=== PATIENT | male | born 1950 | race Caucasian/White ===

== ENCOUNTER 2017-04-18 10:40 | Emergency (ER) | payer OTHER, MEDICARE ==
[~2017-04-18] VITALS: Ht 172.7 cm; Wt 83.0 kg
[~2017-04-18 10:40] MED LIST: ASPI81 PO; ATOR10 PO; LISI10TA PO; NEXI40CA PO
[2017-04-18 10:49] VITALS: BP 142/84; PULSE 97; RESP 16; TEMP 100; O2SAT 97
[2017-04-18] MEDS ORDERED: SODIUM CHLOR 0.9% 1000 ML INJ 1,000 ML IV SCH (11:08)
[2017-04-18] MEDS ORDERED: SODIUM CHLORIDE 0.9% FLUSH 10 ML FLUSH IV FLUSH PRN (11:15)
--- NOTE | 2017-04-18 11:18 | PD ---
HPI Chief Complaint: Abdominal Pain Time Seen by Provider: 10:57 Travel History International Travel<30 days: No Contact w/Intl Traveler<30days: No Traveled to known affect area: No History of Present Illness HPI 66-year-old man presents to the emergency department complaining of abdominal pain and a lecture shocklike pain in his arms and legs. Patient states that he felt well until April 01 when he took his pravastatin which was newly prescribed to him while traveling in [place]. Then states that he felt like the entire hotel bed that he was on begin the vibrated shake. He does not take in the pravastatin since then. He states since yesterday and into this morning he began having bandlike abdominal discomfort across the top of his abdomen. He came into the emergency department this morning because he describes electric shocklike discomfort in his arms and legs. No nausea or vomiting. His never had any the symptoms before. Denies any history of anxiety. He looks otherwise well. He did not eat breakfast this morning because he was in a try to go see his doctor about them able to get blood work. His doctor cannot see until Friday so he came to the emergency department today. History Past Medical History Narrative Medical Hyperlipidemia Hypertension Enlarged left ventricle Influenza Vaccination: Yes Social History Alcohol Use: No Tobacco Use: No Allergies-Medications (Allergen,Severity, Reaction): Coded Allergies: No Known Allergies (Verified , 04/18/17) Reported Meds & Prescriptions Reported Meds & Active Scripts Active Reported Nexium (Esomeprazole) 40 Mg Cap 40 Mg PO DAILY Aspirin 81 Mg Tab 81 Mg PO DAILY Lipitor (Atorvastatin Calcium) 10 Mg Tab 0 PO DAILY UNKNOWN DOSE Lisinopril/Hctz 20/12.5 (HCTZ/Lisinopril) Tab 1 Tab PO BID Review of Systems Except as stated in HPI: all other systems reviewed are Neg Physical Exam Narrative GENERAL: Well-appearing 66-year-old man, no acute distress. SKIN: Focused skin assessment warm/dry. NECK: Trachea midline. No JVD. CARDIOVASCULAR: Regular rate and rhythm. No murmur appreciated. RESPIRATORY: No accessory muscle use. Clear to auscultation. Breath sounds equal bilaterally. GASTROINTESTINAL: Abdomen is flat and soft. He has moderate right upper quadrant tenderness with some minimal voluntary guarding. No peritonitis. MUSCULOSKELETAL: No obvious deformities. No edema. NEUROLOGICAL: Awake and alert. No obvious cranial nerve deficits. Motor grossly within normal limits. Normal speech. PSYCHIATRIC: Appropriate mood and affect; insight and judgment normal. Data Data Last Documented VS Vital Signs Date Time Temp Pulse Resp B/P Pulse Ox O2 Delivery O2 Flow Rate FiO2 04/18/17 11:24 96 Room Air 04/18/17 10:49 100.0 97 16 142/84 Orders Complete Blood Count With Diff (04/18/17 11:08) Comprehensive Metabolic Panel (04/18/17 11:08) Lipase (04/18/17 11:08) Urinalysis - C+S If Indicated (04/18/17 11:08) Iv Access Insert/Monitor (04/18/17 11:08) Ecg Monitoring (04/18/17 11:08) Oximetry (04/18/17 11:08) Sodium Chlor 0.9% 1000 Ml Inj (Ns 1000 M (04/18/17 11:08) Sodium Chloride 0.9% Flush (Ns Flush) (04/18/17 11:15) Ed Poc Ultrasound (04/18/17 11:08) Ct Abd/Pel W Iv Contrast(Rout) (04/18/17 ) Iohexol 350 Inj (Omnipaque 350 Inj) (04/18/17 12:28) Labs Laboratory Tests Test 04/18/17 04/18/17 11:19 11:20 Urine Collection Type CLEAN CATCH Urine Color YELLOW Urine Turbidity CLEAR Urine pH 8.0 Urine Specific [place] 1.016 Urine Protein TRACE mg/dL Urine Glucose (UA) NEG mg/dL Urine Ketones NEG mg/dL Urine Occult Blood NEG Urine Nitrite NEG Urine Bilirubin NEG Urine Leukocyte Esterase NEG Urine RBC 0-3 /hpf Urine Squamous Epithelial 0-5 /hpf Cells Urine Amorphous Sediment FEW Microscopic Urinalysis Comment CULT NOT INDICATED Urine Collection Time 11:19 White Blood Count 9.5 TH/MM3 Red Blood Count 4.82 MIL/MM3 Hemoglobin 14.5 GM/DL Hematocrit 42.8 % Mean Corpuscular Volume 88.8 FL Mean Corpuscular Hemoglobin 30.1 PG Mean Corpuscular Hemoglobin 33.9 % Concent Red Cell Distribution Width 12.1 % Platelet Count 164 TH/MM3 Mean Platelet Volume 9.8 FL Neutrophils (%) (Auto) 86.8 % Lymphocytes (%) (Auto) 2.4 % Monocytes (%) (Auto) 9.9 % Eosinophils (%) (Auto) 0.8 % Basophils (%) (Auto) 0.1 % Neutrophils # (Auto) 8.3 TH/MM3 Lymphocytes # (Auto) 0.2 TH/MM3 Monocytes # (Auto) 0.9 TH/MM3 Eosinophils # (Auto) 0.1 TH/MM3 Basophils # (Auto) 0.0 TH/MM3 CBC Comment DIFF FINAL Differential Comment Sodium Level 141 MEQ/L Potassium Level 3.6 MEQ/L Chloride Level 103 MEQ/L Carbon Dioxide Level 27.9 MEQ/L Anion Gap 10 MEQ/L Blood Urea Nitrogen 9 MG/DL Creatinine 1.10 MG/DL Estimat Glomerular Filtration 67 ML/MIN Rate Random Glucose 103 MG/DL Calcium Level 8.7 MG/DL Total Bilirubin 0.5 MG/DL Aspartate Amino Transf 18 U/L (AST/SGOT) Alanine Aminotransferase 30 U/L (ALT/SGPT) Alkaline Phosphatase 92 U/L Total Protein 7.3 GM/DL Albumin 4.0 GM/DL Lipase 118 U/L MDM Medical Decision Making Medical Screen Exam Complete: Yes Emergency Medical Condition: Yes Interpretation(s) LABS: CBC unremarkable. CMP unremarkable. Lipase is normal. UA is unremarkable. CT abdomen and pelvis: Negative. Prominent gallbladder. Benign hepatic cyst. Differential Diagnosis Cholecystitis, symptomatic cholelithiasis, gastritis, anxiety, electrolyte abnormality, other Narrative Course Medical decision making 66-year-old man with unusual constellation of symptoms, bizarrely described, the most substantial which is some upper abdominal pain of right upper quadrant tenderness. The descriptions of the hotel bed shaking symptoms, and electric shocklike sensations her arms and legs he must concerning. We'll check labs, check for electrolyte abnormalities, we'll check for evidence of cholelithiasis or cholecystitis. Likely outpatient follow-up with his primary doctor on Friday. Procedures Procedure Narrative Point of care ultrasound: Focus transabdominal ultrasounds performed by me at the bedside for the purpose of evaluating for evidence of cholecystitis. Gallbladder is distended. No gallstones were seen. No gallbladder wall thickening pericholecystic was identified. Common bile duct was 3.2 mm. There may been a little bit of sludging. Diagnosis Primary Impression: Abdominal pain Additional Instructions: Drink plenty of fluids to stay well-hydrated. Follow-up with her primary doctor in the next 2-4 days. Return to the emergency department for any new or worsening symptoms. Med/Other Pt SpecificInfo: No Change to Meds Disposition: 01 DISCHARGE HOME Condition: Stable Yuri Ascencio MD Apr 18, 2017 11:18
[2017-04-18 11:24] VITALS: O2SAT 96
[2017-04-18 11:27] LABS: BLOOD, URINE NEG (NEG); GLUCOSE,URINE NEG (NEG); KETONE, URINE NEG (NEG); NITRITE,URINE NEG (NEG)
[2017-04-18 11:33] LABS: METHOD OF COLLECTION CLEAN CATCH
[2017-04-18 11:34] LABS: AUTOMATED NEUTROPHIL # 8.3 TH/MM3 (1.8-7.7); BASOPHIL % 0.1 % (0.0-2.0); EOSINOPHIL # 0.1 TH/MM3 (0-0.4); EOSINOPHIL % 0.8 % (0.0-4.0); HEMATOCRIT 42.8 % (39.0-51.0); HEMO FLAGS DIFF FINAL; LYMPH % 2.4 % (9.0-44.0); LYMPHOCYTE # 0.2 TH/MM3 (1.0-4.8); MEAN CELL VOLUME 88.8 FL (80.0-100.0); MEAN CORPUSCULAR HEMOGLOBIN 30.1 PG (27.0-34.0); MEAN CORPUSCULAR HGB CONC 33.9 % (32.0-36.0); MONO % 9.9 % (0.0-8.0); NEUT % 86.8 % (16.0-70.0); PLATELET COUNT 164 TH/MM3 (150-450); RED BLOOD COUNT 4.82 MIL/MM3 (4.50-5.90); RED CELL DISTRIBUTION WIDTH 12.1 % (11.6-17.2); WHITE BLOOD COUNT 9.5 TH/MM3 (4.0-11.0)
[2017-04-18 11:34] LABS: COMMENT (UR) CULT NOT INDICATED; CULTURE IF INDICATED CULT NOT INDICATED; RBC, URINE 0-3 /hpf (0-3); SQUAMOUS EPITHELIAL CELL URINE 0-5 /hpf (0-5); URINE COLOR YELLOW (YELLW/STRAW)
[2017-04-18 11:41] LABS: CHLORIDE 103 MEQ/L (98-107); POTASSIUM 3.6 MEQ/L (3.5-5.1); SODIUM (NA) 141 MEQ/L (136-145)
[2017-04-18 11:45] LABS: ANION GAP 10 MEQ/L (5-15); BICARBONATE 27.9 MEQ/L (21.0-32.0); BLOOD UREA NITROGEN 9 MG/DL (7-18)
[2017-04-18 11:48] LABS: ALT (GPT) 30 U/L (12-78); AST (GOT) 18 U/L (15-37); GLOMERULAR FILTRATION RATE 67 ML/MIN (>89)
[2017-04-18 11:49] LABS: TOTAL BILIRUBIN ADULT 0.5 MG/DL (0.2-1.0)
[2017-04-18 11:51] LABS: ALKALINE PHOSPHATASE 92 U/L (45-117)
[2017-04-18] MEDS ORDERED: IOHEXOL 350 MG/ML 10 ML VIAL (for RAD DIAG) IV ONE (12:28)
--- NOTE | 2017-04-18 14:09 | RADHPO ---
EXAM DATE/TIME: 04/18/2017 12:14 [facility] COMPARISON: CT ABDOMEN & PELVIS W CONTRAST, October 06, 2011, 18:54. INDICATIONS : Right upper quadrant pain. IV CONTRAST: 85 cc Omnipaque 350 (iohexol) IV ORAL CONTRAST: No oral contrast ingested. RADIATION DOSE: 11.43 CTDIvol (mGy) MEDICAL HISTORY : Chronic obstructive pulmonary disease. Gastroesophageal reflux disease. Hypertension. SURGICAL HISTORY : Appendectomy. ENCOUNTER: Initial ACUITY: 2 weeks PAIN SCALE: 7/10 LOCATION: Right upper quadrant TECHNIQUE: Volumetric scanning of the abdomen and pelvis was performed. Using automated exposure control and ad justment of the mA and/or kV according to patient size, radiation dose was kept as low as reasonably achievable to obtain optimal diagnostic quality images. FINDINGS: The lung bases are clear. There is no pericardial effusion. Scattered low density lesions are seen in the liver thought to be cysts. The spleen, pancreas and adrenals are unremarkable. There is no evidence for bowel wall thickening. Surgical clips are seen about the cecum. Abdominal wall hernia repair is seen in the right lower radha drant. Pelvic contents are unremarkable except for a prominent prostate. Review of bone windows reveals moderate degenerative changes in the lower lumbar spine. CONCLUSION: 1. I don't see an etiology for this patients right upper quadrant pain. There is a prominent gallbla dder without stones our inflammatory changes. 2. There is no intrahepatic biliary ductal dilatation. 3. Benign appearing hepatic cysts are noted, stable in the interval. Frankie Francis MD FACR on April 18, 2017 at 12:37 Board Certified Radiologist. This report was verified electronically.
== END 2017-04-18 14:29 | disposition home or self-care (01) ==
LOC: PHED 10:40
DX: R10.11 Right upper quadrant pain (principal); I10 Essential (primary) hypertension; E78.5 Hyperlipidemia, unspecified; I51.7 Cardiomegaly; Z79.82 Long term (current) use of aspirin
CPT/HCPCS: 74177; 80053; 81001; 83690; 85025; 96360; 99285; J7030; Q9967